=== PATIENT | female | born 1970 | race Caucasian/White ===

== ENCOUNTER 2017-08-15 15:50 | Outpatient (RCR) | payer OTHER, SELFPAY | END 2017-08-19 | LOC: INF 15:50 | PROVIDERS: PCP Family Medicine; Visit Provider Specialist | DX: C50.919 Malignant neoplasm of unspecified site of unspecified female breast (principal) | CPT/HCPCS: 99214 ==

== ENCOUNTER → 2018-01-26 13:32 | Outpatient (CLI) | payer OTHER, SELFPAY ==
[2018-01-26 14:31] LABS: Add Manual Diff / Slide Review NO; Basophils Percent Auto 1.1 % (0-2); Eosinophils Percent Auto 4.7 % (2-4); Hematocrit 38.8 % (36-46); Hemoglobin 13.2 g/dL (12.0-16.0); Lymphocytes Percent Auto 31.5 % (25-40); Mean Corpuscular HGB Conc 34.1 % (30-36); Mean Corpuscular Hemoglobin 32.9 PG (26-34); Mean Corpuscular Volume 96.4 fL (80-100); Monocytes Percent Auto 8.1 % (3-14); Neutrophils Absolute Auto 3100 /uL (3000-5900); Neutrophils Percent Auto 54.6 % (50-75); Platelet Count 413 X10^3/uL (150-400); Red Blood Cell Count 4.03 X10^6/uL (4.0-5.2); Red Cell Distribution Width 14.3 % (11.6-14.8); White Blood Cell Count 5.7 X10^3/uL (4.5-11.0)
[2018-01-26 15:11] LABS: Alanine Aminotransferase 58 IU/L (9-52); Albumin 4.4 g/dL (3.5-5.0); Albumin Globulin Ratio 1.5 (1.0-2.8); Alkaline Phosphatase 81 U/L (38-126); Aspartate Aminotransferase 32 IU/L (14-36); BUN Creatinine Ratio 22.5 (6-22); Bilirubin Total 0.5 mg/dL (0.2-1.3); Blood Urea Nitrogen 18 mg/dL (7-17); Calcium 9.3 mg/dL (8.4-10.2); Carbon Dioxide 28 mmol/L (22-32); Chloride 104 mmol/L (98-107); Estimated Glomerular Filt Rate > 60.0 mL/min (>60); Glucose 93 mg/dL (70-100); HEMOLYSIS 19 (0-50); Potassium 3.9 mmol/L (3.4-5.1); Sodium 143 mmol/L (137-145); Total Protein 7.4 g/dL (6.3-8.2)
== END ==
PROVIDERS: PCP Family Medicine; Visit Provider Nurse Practitioner Gerontology
DX: C50.919 Malignant neoplasm of unspecified site of unspecified female breast (principal)
CPT/HCPCS: 36415; 80053; 85025

== ENCOUNTER → 2018-02-02 11:32 | Outpatient (CLI) | payer OTHER, SELFPAY ==
--- NOTE | 2018-02-02 | DI.MG.S_ITS ---
BILATERAL DIGITAL SCREENING MAMMOGRAM 3D/2D WITH CAD POST LUMPECTOMY: 02/02/2018 CLINICAL: Routine screening. Personal history of breast cancer. Family history of breast cancer. Comparison is made to exams dated: 02/03/2017 mammogram, 01/28/2016 mammogram, and 08/25/2015 mammogram - [facility]. There are scattered fibroglandular elements in both breasts. Current study was also evaluated with a Computer Aided Detection (CAD) system. There are post operative findings in the right breast. No significant masses, calcifications, or other findings are seen in either breast. There has been no significant interval change. IMPRESSION: NEGATIVE There is no mammographic evidence of malignancy. A 1 year screening mammogram is recommended. This exam was interpreted at Station ID: [id number]. NOTE: For mammograms, a report in lay terms will be sent to the patient. Approximately 15% of breast malignancies will not be visualized mammographically. In the management of a palpable breast mass, a negative mammogram must not discourage biopsy of a clinically suspicious lesion. Electronically Signed By: Sonia dsouza/sahil:02/02/2018 12:17:24 copy to: Rosenda Wade letter sent: Normal Exam ACR BI-RADS Category 1: Negative 3341F
== END ==
PROVIDERS: PCP Family Medicine; Visit Provider Family Medicine
DX: Z12.31 Encounter for screening mammogram for malignant neoplasm of breast (principal); Z85.3 Personal history of malignant neoplasm of breast; Z80.3 Family history of malignant neoplasm of breast
CPT/HCPCS: 77063; 77067

== ENCOUNTER → 2018-02-07 07:13 | Outpatient (CLI) | payer OTHER, SELFPAY ==
--- NOTE | 2018-02-07 | DI.US.S_ITS ---
PROCEDURE: US PELVIC COMPLETE INDICATIONS: VAGINAL BLEEDING TECHNIQUE: Real-time scanning was performed of the pelvic organs, with image documentation. Additional endovaginal scanning was necessary due to incomplete visualization of the adnexal and endometrial structures by transabdominal scanning. COMPARISON: [facility], , PELVIC COMPLETE, 08/28/2015, 12:26. FINDINGS: Transabdominal scanning: Limited scanning through the kidneys shows no hydronephrosis. No pathologic free abdominal or pelvic fluid. Endovaginal scanning: Uterus: Uterus is normal in size at 11.0 x 6.9 8.0 cm. The endometrium measures 14.5 mm in combined thickness. Ovaries: Normal left ovary not visualized. Large cystic mass is seen within the left adnexa measuring 12.1 x 7.6 x 9.2 cm compared to 9.7 x 5.9 x 8.3 cm on prior exam Right ovary is normal size measuring 3.2 x 2.2 x 3.3 cm and a simple cyst is present measuring 2.2 cm. IMPRESSION: 1. Abnormal appearance of the endometrial complex which is again thickened to 14.5 mm. Endometrial biopsy is recommended as endometrial carcinoma cannot be excluded. 2. Increase in size of cystic left adnexal mass measuring up to 12.1 cm. Neoplasm such as cystadenoma/cystadenocarcinoma cannot be excluded. If indicated pre and post contrast gynecologic protocol MRI could be performed. Dictated by: Alex SIMENTAL Interpreted: Sam Woo MD on 02/07/2018 at 10:43 Approved by: Sam Woo M.D. on 02/07/2018 at 12:17
== END ==
PROVIDERS: PCP Family Medicine; Visit Provider Family Medicine
DX: N93.9 Abnormal uterine and vaginal bleeding, unspecified (principal); R93.8 Abnormal findings on diagnostic imaging of other specified body structures; N94.89 Other specified conditions associated with female genital organs and menstrual cycle
CPT/HCPCS: 76830; 76856

== ENCOUNTER → 2018-02-12 12:21 | Outpatient (CLI) | payer OTHER, SELFPAY ==
--- NOTE | 2018-02-12 | DI.MRI.S_ITS ---
PROCEDURE: MR PELVIS WO/W CON INDICATIONS: LEFT ADNEXAL MASS TECHNIQUE: Coronal HASTE, sagittal breath-hold T2 FSE; axial T1 FSE with and without fat saturation through the pelvis. Optional long- and short-axis uterine nonbreath-hold T2 FSE through the uterus. Sagittal or axial dynamic VIBE during administration of contrast. Post-contrast axial or coronal VIBE/2-D FLASH with fat saturation from the iliac crests to the symphysis. Optional diffusion weighted imaging and ADC may be performed. COMPARISON: [facility], , PELVIC COMPLETE, 08/28/2015, 12:26. [facility], , PELVIC COMPLETE, 02/07/2018, 7:24. FINDINGS: Image quality: Excellent. Uterus: Uterus is prominent in size with heterogeneity of the myometrial. Junctional zone is thickened, measuring greater than 12 mm, with indistinct margins. There is a section scar containing a small amount of fluid signal noted. Adnexa: There is a large thin-walled left adnexal cyst likely originating from the left ovary measuring approximately 9.7 x 7.5 x 10.2 cm. No definite solid internal enhancement component identified. The right ovary appears within normal size limits. Urinary system: Bladder wall is normal in thickness. Distal ureters are non distended. Urethra appears normal in morphology. Nodes and vessels: No pelvic or inguinal adenopathy by size criteria. Iliac vessels are normal in size. Bowel and peritoneum: No pathologic free pelvic fluid. Inferior colon and small bowel loops are normal in caliber. Soft tissues: No inguinal hernias. No findings of pelvic floor incompetence in the absence of provocation. Bones: Marrow demonstrates normal overall signal. IMPRESSION: 1. Heterogeneous uterus with thickened and ill-defined junctional zone suggestive of adenomyosis. 2. Large left ovarian cyst without internal solid enhancing component identified. The finding is nonspecific and a cystic ovarian neoplasm is not fully excluded although less likely given persistence of this finding over time. However, evaluation for change in size compared to prior ultrasound studies is limited due to differences in technique. Recommend continued followup to demonstrate stability. Dictated by: Montana Ingram M.D. on 02/13/2018 at 11:00 Approved by: Montana Ingram M.D. on 02/13/2018 at 11:25
[2018-02-12 14:22] LABS: Cancer Antigen 125 9 U/mL (0-35)
[2018-02-14 15:10] LABS: CA 15-3 18 U/mL (< 32)
[2018-02-14 15:12] LABS: Cancer Antigen 27.29 27 U/mL (< 38)
--- NOTE | 2018-03-13 11:26 | ONC.NAV ---
Description: Survivorship Summary Activity: Sent pt her survivorship summary. Sent pt's PCP letter and summary.
== END ==
PROVIDERS: Family Provider Surgery; PCP Family Medicine; Visit Provider Family Medicine
DX: C50.919 Malignant neoplasm of unspecified site of unspecified female breast (principal); N83.202 Unspecified ovarian cyst, left side; N83.9 Noninflammatory disorder of ovary, fallopian tube and broad ligament, unspecified
CPT/HCPCS: 36415; 72197; 86300; 86304; A9579

== ENCOUNTER 2018-04-19 08:58 | Day surgery (SDC) | payer OTHER, SELFPAY ==
[2018-04-17 16:46] VITALS: BMI 29.1
[2018-04-19] VITALS (9 sets, daily range): BP systolic 101–131; BP diastolic 46–70; PULSE 90–131; RESP 15–18; TEMP 36.3–37.2; O2SAT 94–97; BMI 30.2
--- NOTE | 2018-04-19 | PATH_ITS ---
[facility] Accession Number: [id number] . 01 Material submitted: . UTERUS AND BILATERAL FALLOPIAN TUBES . 02 Diagnosis: Morcellated Supracervical Hysterectomy Specimen With Bilateral Fallopian Tubes: Proliferative endometrium with disordered maturation and changes of glandular and stromal breakdown, negative for atypia. Fallopian tubes unremarkable. MRV/04/23/2018 . 02 Electronically signed: . Kris Catalan MD, Pathologist NPI- [id number] . 01 Gross description: . Received in formalin, labeled uterus, bilateral fallopian tubes, is a morcellated uterus (178 grams, 16.5 x 15.3 x 3.5 cm in aggregate) with attached nonfimbriated segments of fallopian tubes (tube #1: length-2.5 cm, diameter-0.3 cm, tube #2: length-1.3 cm, diameter-0.3 cm). The ovaries and cervix are absent. The specimen cannot be oriented and the endometrium and myometrium cannot be grossly measured. The parenchyma is clayton and unremarkable. The serosa is clayton, smooth and shiny. The fallopian tubes have palmer-clayton smooth shiny serosa and clayton unremarkable lumens. Section code: (A1-A3) parenchyma, cash application representative; (A4) fallopian tube #1, cash application representative serial sections; (A5) fallopian tube #2, cash application representative serial sections. ([id number]) /MRV . Pathologist provided ICD-10: N93.9 . 02 CPT . 690433 Performed at: 01 [facility] [address] [place] [address], [place], [place] [id number] MD Montana Malik MD Phone: [phone] Performed at: 02 [facility] [id number] [place] [id number] MD Louisa Reece MD Phone: [phone]
[2018-04-19] MEDS: LACTATED RINGERS 1,000 ML 42 ML IV (09:40)
--- NOTE | 2018-04-19 10:41 | PM.PREOP ---
Pre-operative Note Interval Note Pre-op Check: Yes History & Physical Reviewed by Physician Changes: No
[2018-04-19] MEDS: CEFAZOLIN 2 GM/100 ML FROZ.PIGGY IV (10:50)
--- NOTE | 2018-04-19 11:38 | SUR.OPER ---
Lithotomy on padded OR bed. [place] Pad Positioner under torso. Head on pillow, arms padded and tucked at sides. Legs secured in padded yellow fins stirrups.
[2018-04-19] MEDS: ROPIVACAINE 0.2% PF 2 MG/ML 10ML AMP 20 ML INJ (11:56)
[2018-04-19] MEDS: BUPIVACAINE 0.5% W/ EPI (PF) VIAL 30 ML INJ (11:57)
[2018-04-19] MEDS: OXYCODONE/ACETAMINOPHEN 5/325 TABLET 1 TAB PO (14:19)
--- NOTE | 2018-04-19 14:48 | PC.NURSE ---
Post-op: Recieved from PACU s/p hyst, TL, minimal pain at the moment. Took 1/2 of a percocet, doesn't like the way a whole percocet makes her feel. Reports it is effective. O2 sats 98% on ra. Cont pulse ox on per orders. Hungry and given some yogurt and tolerated same w/out problems. A general diet was ordered for dinner. VSS. Has been up in room/br to void. Scd's are on. Cont w/poc.
--- NOTE | 2018-04-19 18:10 | PC.NURSE ---
PATIENT HAS COMPLETED GENERAL DIET WITHOUT NAUSEA,HAS BEEN UP TO BATHROOM AND URINATED WITHOUT DIFFICULTY,AMBULATING INDEP.PAIN MANAGED WELL WITH JUST 1/2 TAB OF PERCOCET ABOUT 1400.WILL WAIT FOR TO COME BACK TO PICK HER UP AND D/C HOME.
--- NOTE | 2018-04-20 05:51 | P.OP_ITS ---
Operative Date/Time/Diagnoses Date of procedure: 04/19/18 Time of procedure: 12:30 Pre-op diagnosis: Menorrhagia Left ovarian mass Thickened endometrial lining Post-op diagnosis: same Procedure: Procedures Operation Date: 04/19/18 10:30 Actual Procedures Side Surgeon arnie CHAVEZ, bilateral Salpingectomy Flor Birch MD Indications: Menorrhagia Thickened endometrial lining Left ovarian mass Surgeon: Flor Birch Director Marketing: Angel Sapp Anesthesia Type: General Operative Notes Findings: 10 week size uterus Normal tubes and ovaries Normal gallbladder liver and appendix Probable adenomyosis Closure Type: primary Specimen(s): left tube, right tube and uterus Applied: catheter (Removed at the end of the case) Estimated blood loss (mL): 50 Blood products transfused: none Procedure in detail: The patient was taken to the operating room where she was placed in the dorsal supine position. After adequate general endotracheal anesthesia was achieved, she was placed in the dorsal lithotomy position, and prepped and draped in the usual sterile fashion. A timeout was performed. A bivalve speculum was placed into the vagina and the anterior lip of the cervix grasped with a single-tooth tenaculum. The cervical os was sequentially dilated until the ZUMI uterine manipulator could pass easily into the endometrial cavity. The single-tooth tenaculum was removed from the anterior lip of the cervix, and the bivalve speculum was removed from the vagina. Attention was then turned to the abdomen where 6 mL of half percent Marcaine with epinephrine were injected in the umbilical fold. A 5 mm incision was made. The Verhees needle was placed into the peritoneal cavity, and its placement confirmed by aspiration and drop test. The Verhees needle was removed. A 5 mm trocar was placed without difficulty. 2 other incisions were made midway between the pubic symphysis and umbilicus after 5 mL of half percent Marcaine with epinephrine were injected. These were 5 mm incisions. Two 5 mm trochars were placed under direct visualization. The right tube was grasped with an atraumatic grasper. Using the plasma kinetic with settings of 40 W the mesosalpinx was cauterized and cut all the way down to the cornua of the uterus. The cornua of the uterus was then grasped with an atraumatic grasper. The utero-ovarian ligaments were cauterized and cut. The round ligament and broad ligament was cauterized and cut with plasma kinetic. Hemostasis was achieved. The bladder flap was created using the plasma kinetic with cautery and cut half-way across. The uterine arteries on the right side were extensively cauterized with plasma kinetic. All of this was repeated on the left side. The remainder of the bladder flap was created using the plasma kinetic, and the bladder taken down off the lower uterine segment and cervix. Using the Endoloop, the cervix was amputated from the uterus 2 cm above the uterosacral ligaments, after the ZUMI uterine manipulator was removed from the uterus. There was a small amount of bleeding noted from the posterior edge of the cervix, and this was cauterized for hemostasis. A sponge stick was placed into the vagina. 6 mL of half percent Marcaine with epinephrine were injected above the pubic symphysis. A 12 mm trocar was placed and removed. An Endobag was placed through the suprapubic trocar and the uterus placed into the Endobag. The edges of the endobag were brought through the skin. The Shantanu placed into the endobag. The uterus was hand morcellated in approximately 20 pieces. The Endobag was removed from the peritoneal cavity. The Shantanu was removed. The pelvis was copiously irrigated with warm normal saline. No bleeding was noted. The instruments were removed from the abdomen. The CO2 was allowed to escape. The suprapubic incision was closed on the fascia with 0 Vicryl. The subcutaneous layer was closed with 2 simple interrupted sutures with 3 0 Vicryl. All of the incisions were closed with 4-0 undyed Vicryl in a subcuticular fashion. The moistened sponge stick was removed from the vagina. Sponge, lap, and instrument counts were correct x-2. The patient tolerated the procedure well, was taken to PACU in stable condition. Complications: none Post-operative Condition: stable Disposition: PACU Plan for aftercare: Home after recovery
== END 2018-04-19 18:47 | disposition home or self-care (01) ==
LOC: OR 08:59 → AC 09:00
PROVIDERS: Family Provider Surgery; PCP Family Medicine; Visit Provider Obstetrics & Gynecology
PROC: 0UT94ZL Resection of Uterus, Supracervical, Percutaneous Endoscopic Approach (ICD-10-PCS; CPT 58542; principal; 2018-04-19 10:30)
DX: N92.0 Excessive and frequent menstruation with regular cycle (principal); N85.00 Endometrial hyperplasia, unspecified; Z85.3 Personal history of malignant neoplasm of breast; F41.9 Anxiety disorder, unspecified; E03.9 Hypothyroidism, unspecified
CPT/HCPCS: 58542; J0330; J0690; J1100; J1170; J1885; J2405; J2704; J2795; J3010

== ENCOUNTER → 2018-08-06 15:24 | Outpatient (CLI) | payer OTHER, SELFPAY ==
[2018-04-19 13:22] VITALS: BMI 30.2
[2018-08-06 16:09] LABS: Add Manual Diff / Slide Review NO; Basophils Absolute Auto 100 /uL (0-100); Eosinophils Absolute Auto 200 /uL (0-450); Hematocrit 37.3 % (36-46); Lymphocytes Absolute Auto 1800 /uL (1100-4500); Lymphocytes Percent Auto 27.4 % (25-40); Mean Corpuscular HGB Conc 32.1 % (30-36); Mean Corpuscular Hemoglobin 28.1 PG (26-34); Mean Corpuscular Volume 87.6 fL (80-100); Monocytes Absolute Auto 600 /uL (0-900); Monocytes Percent Auto 9.4 % (3-14); Neutrophils Absolute Auto 3800 /uL (1500-7000); Neutrophils Percent Auto 59.2 % (50-75); Platelet Count 376 X10^3/uL (150-400); Red Blood Cell Count 4.26 X10^6/uL (4.0-5.2); Red Cell Distribution Width 17.6 % (11.6-14.8); White Blood Cell Count 6.4 X10^3/uL (4.5-11.0)
[2018-08-06 16:27] LABS: Alanine Aminotransferase 30 IU/L (9-52); Albumin 4.3 g/dL (3.5-5.0); Albumin Globulin Ratio 1.4 (1.0-2.8); Alkaline Phosphatase 84 U/L (38-126); Aspartate Aminotransferase 25 IU/L (14-36); BUN Creatinine Ratio 18.8 (6-22); Bilirubin Total 0.2 mg/dL (0.2-1.3); Blood Urea Nitrogen 15 mg/dL (7-17); Calcium 8.4 mg/dL (8.4-10.2); Carbon Dioxide 25 mmol/L (22-32); Chloride 102 mmol/L (98-107); Estimated Glomerular Filt Rate > 60.0 mL/min (>60); Globulin 3.1 g/dL (1.7-4.1); Glucose 115 mg/dL (70-100); HEMOLYSIS 22 (0-50); Potassium 3.5 mmol/L (3.4-5.1); Sodium 137 mmol/L (137-145); Total Protein 7.4 g/dL (6.3-8.2)
== END ==
PROVIDERS: Family Provider Surgery; PCP Family Medicine; Visit Provider Internal Medicine Hematology & Oncology
DX: Z08 Encounter for follow-up examination after completed treatment for malignant neoplasm (principal); Z85.3 Personal history of malignant neoplasm of breast; E03.9 Hypothyroidism, unspecified; F41.9 Anxiety disorder, unspecified; F32.9 Major depressive disorder, single episode, unspecified
CPT/HCPCS: 36415; 80053; 85025

== ENCOUNTER → 2019-02-08 13:41 | Outpatient (CLI) | payer OTHER, SELFPAY ==
[2018-04-19 13:22] VITALS: BMI 30.2
--- NOTE | 2019-02-08 13:42 | DI.MG.S_ITS ---
BILATERAL DIGITAL SCREENING MAMMOGRAM 3D/2D WITH CAD: 02/08/2019 CLINICAL: Routine screening. Personal history of right breast cancer. Family history of breast cancer. Comparison is made to exams dated: 02/02/2018 mammogram, 02/03/2017 mammogram, and 01/28/2016 mammogram - [facility]. There are scattered fibroglandular elements in both breasts. Current study was also evaluated with a Computer Aided Detection (CAD) system. There are benign post operative findings in the right breast. No significant masses, calcifications, or other findings are seen in either breast. There has been no significant interval change. IMPRESSION: There is no mammographic evidence of malignancy. A 1 year screening mammogram is recommended. This exam was interpreted at Station ID: [id number]. NOTE: For mammograms, a report in lay terms will be sent to the patient. Approximately 15% of breast malignancies will not be visualized mammographically. In the management of a palpable breast mass, a negative mammogram must not discourage biopsy of a clinically suspicious lesion. Electronically Signed By: Sonia dsouza/sahil:02/08/2019 15:20:34 copy to: Rosenda Wade letter sent: Normal Exam ACR BI-RADS Category 2: Benign Finding(s) 3342F
== END ==
PROVIDERS: PCP Family Medicine; Referring Provider Internal Medicine Hematology & Oncology; Visit Provider Family Medicine
DX: Z12.31 Encounter for screening mammogram for malignant neoplasm of breast (principal); Z85.3 Personal history of malignant neoplasm of breast; Z80.3 Family history of malignant neoplasm of breast
CPT/HCPCS: 77063; 77067

== ENCOUNTER → 2020-01-06 15:04 | Outpatient (CLI) | payer OTHER, SELFPAY ==
[2018-04-19 13:22] VITALS: BMI 30.2
== END ==
PROVIDERS: PCP Family Medicine; Referring Provider Family Medicine; Visit Provider Internal Medicine
DX: M85.852 Other specified disorders of bone density and structure, left thigh (principal); Z85.3 Personal history of malignant neoplasm of breast; Z82.62 Family history of osteoporosis; Z87.891 Personal history of nicotine dependence
CPT/HCPCS: 77080

== ENCOUNTER → 2021-04-29 13:51 | Outpatient (CLI) | payer OTHER, SELFPAY ==
[2018-04-19 13:22] VITALS: BMI 30.2
[2021-04-29 14:39] LABS: Hematocrit 44.8 % (36-46); Hemoglobin 15.1 g/dL (12.0-16.0); Mean Corpuscular HGB Conc 33.6 % (30-36); Mean Corpuscular Hemoglobin 32.2 PG (26-34); Mean Corpuscular Volume 95.7 fL (80-100); Platelet Count 320 X10^3/uL (150-400); Red Blood Cell Count 4.68 X10^6/uL (4.0-5.2); Red Cell Distribution Width 14.7 % (11.6-14.8); White Blood Cell Count 4.9 X10^3/uL (4.5-11.0)
[2021-04-29 14:46] LABS: Hemoglobin A1C% w Est Avg Glu 5.5 % (4.0-6.0)
[2021-04-29 14:51] LABS: Alanine Aminotransferase 58 IU/L (<35); Albumin 4.6 g/dL (3.5-5.0); Albumin Globulin Ratio 1.7 (1.0-2.8); Alkaline Phosphatase 87 U/L (38-126); Aspartate Aminotransferase 37 IU/L (14-36); Bilirubin Total 0.6 mg/dL (0.2-1.3); Blood Urea Nitrogen 12 mg/dL (7-17); Calcium 9.6 mg/dL (8.4-10.2); Carbon Dioxide 33 mmol/L (22-32); Chloride 100 mmol/L (98-107); Cholesterol 317 mg/dL (140-199); Estimated Glomerular Filt Rate > 60.0 mL/min (>60); Globulin 2.7 g/dL (1.7-4.1); Glucose 99 mg/dL (70-100); HDL Cholesterol 57 mg/dL (40-60); HEMOLYSIS < 15 (0-50); LDL Cholesterol Calculated 216 mg/dL (<100); Potassium 3.9 mmol/L (3.4-5.1); Sodium 139 mmol/L (137-145); Total Protein 7.3 g/dL (6.3-8.2); Triglycerides 219 mg/dL (35-150)
[2021-04-29 15:21] LABS: Free T4, Direct Thyroxine 1.47 ng/dL (0.78-2.19)
[2021-04-29 15:23] LABS: Ferritin 28 ng/mL (11-264)
[2021-04-29 15:35] LABS: Thyroid Stimulating Hormone 1.15 uIU/mL (0.47-4.68)
== END ==
PROVIDERS: PCP Family Medicine; Referring Provider Family Medicine; Visit Provider Family Medicine
DX: R94.5 Abnormal results of liver function studies (principal); E03.9 Hypothyroidism, unspecified; E78.2 Mixed hyperlipidemia; R73.01 Impaired fasting glucose; D64.9 Anemia, unspecified
CPT/HCPCS: 36415; 80053; 80061; 82728; 83036; 84439; 84443; 85025; 85027

== ENCOUNTER → 2021-05-12 12:15 | Outpatient (CLI) | payer OTHER, SELFPAY ==
[2018-04-19 13:22] VITALS: BMI 30.2
--- NOTE | 2021-05-12 | DI.US.S_ITS ---
PROCEDURE: US ABDOMEN LIMITED INDICATIONS: ABNORMAL LFTS TECHNIQUE: Real-time focused scanning was performed of the abdomen, with image documentation. COMPARISON: None. FINDINGS: Liver is diffusely increased in echogenicity. No focal hepatic abnormalities identified. Normal hepatic size. No gallstones identified. Normal gallbladder wall. No pericholecystic fluid. Negative sonographic North sign. No biliary dilatation. Normal appearance of pancreas. IMPRESSION: 1. Increased hepatic echogenicity likely representing steatosis. Dictated by: Alex Roque [facility] Interpreted: Montana Ingram MD on 05/12/2021 at 14:18 Transcribed by: PHILIPP on 05/12/2021 at 14:19 Approved by: Montana Ingram M.D. on 05/19/2021 at 12:55
== END ==
PROVIDERS: PCP Family Medicine; Referring Provider Family Medicine; Visit Provider Family Medicine
DX: R94.5 Abnormal results of liver function studies (principal)
CPT/HCPCS: 76705

== ENCOUNTER → 2022-05-03 13:41 | Outpatient (CLI) | payer OTHER, SELFPAY ==
[2018-04-19 13:22] VITALS: BMI 30.2
--- NOTE | 2022-05-03 | DI.MG.S_ITS ---
BILATERAL DIGITAL SCREENING MAMMOGRAM 3D/2D WITH CAD POST LUMPECTOMY: 05/03/2022 CLINICAL: Routine screening. Personal history of right breast cancer. Family history of breast cancer. Comparison is made to exams dated: 01/19/2021 mammogram, 12/23/2019 mammogram - [facility], and 02/08/2019 mammogram - [facility]. There are scattered areas of fibroglandular density in both breasts (category b / 25%-50% glandular tissue). Current study was also evaluated with a Computer Aided Detection (CAD) system. There are benign post operative findings in the right breast. No significant masses, calcifications, or other findings are seen in either breast. There has been no significant interval change. IMPRESSION: BENIGN There is no mammographic evidence of malignancy. A 1 year screening mammogram is recommended. This exam was interpreted at Station ID: [id number]. NOTE: For mammograms, a report in lay terms will be sent to the patient. Approximately 15% of breast malignancies will not be visualized mammographically. In the management of a palpable breast mass, a negative mammogram must not discourage biopsy of a clinically suspicious lesion. Electronically Signed By: Nixon jimenez/sahil:05/03/2022 14:43:09 copy to: Rosenda Wade letter sent: Normal Exam ACR BI-RADS Category 2: Benign Finding(s) 3342F
== END ==
PROVIDERS: PCP Family Medicine; Referring Provider Family Medicine; Visit Provider Family Medicine
DX: Z12.31 Encounter for screening mammogram for malignant neoplasm of breast (principal); Z85.3 Personal history of malignant neoplasm of breast; Z80.3 Family history of malignant neoplasm of breast
CPT/HCPCS: 77063; 77067

== ENCOUNTER → 2023-05-05 15:33 | Outpatient (CLI) | payer OTHER, SELFPAY ==
[2018-04-19 13:22] VITALS: BMI 30.2
--- NOTE | 2023-05-05 15:35 | DI.MG.S_ITS ---
BILATERAL DIGITAL SCREENING MAMMOGRAM 3D/2D WITH CAD: 05/05/2023 CLINICAL: Routine screening. Personal history of right breast cancer. Family history of breast cancer. Comparison is made to exams dated: 05/03/2022 mammogram - [facility], 01/19/2021 mammogram, and 12/23/2019 mammogram - [facility]. There are scattered areas of fibroglandular density in both breasts (category b / 25%-50% glandular tissue). Current study was also evaluated with a Computer Aided Detection (CAD) system. There are benign post operative findings in the right breast. No significant masses, calcifications, or other findings are seen in either breast. There has been no significant interval change. IMPRESSION: BENIGN There is no mammographic evidence of malignancy. A 1 year screening mammogram is recommended. This exam was interpreted at Station ID: [id number]. NOTE: For mammograms, a report in lay terms will be sent to the patient. Approximately 15% of breast malignancies will not be visualized mammographically. In the management of a palpable breast mass, a negative mammogram must not discourage biopsy of a clinically suspicious lesion. Electronically Signed By: Sonia dsouza/sahil:05/08/2023 13:43:34 copy to: Rosenda Wade letter sent: Normal Exam ACR BI-RADS Category 2: Benign Finding(s) 3342F
== END ==
PROVIDERS: PCP Family Medicine; Referring Provider Family Medicine; Visit Provider Family Medicine
DX: Z12.31 Encounter for screening mammogram for malignant neoplasm of breast (principal); Z85.3 Personal history of malignant neoplasm of breast; Z80.3 Family history of malignant neoplasm of breast
CPT/HCPCS: 77063; 77067

== ENCOUNTER → 2023-10-23 10:23 | Outpatient (CLI) | payer OTHER, SELFPAY ==
[2018-04-19 13:22] VITALS: BMI 30.2
[2023-10-23 11:23] LABS: Add Manual Diff / Slide Review NO; Basophils Absolute Auto 0 /uL (0-100); Basophils Percent Auto 0.7 % (0-2); Eosinophils Absolute Auto 100 /uL (0-450); Eosinophils Percent Auto 2.9 % (2-4); Hematocrit 42.4 % (36-46); Hemoglobin 14.5 g/dL (12.0-16.0); Lymphocytes Absolute Auto 1400 /uL (1100-4500); Lymphocytes Percent Auto 28.9 % (25-40); Mean Corpuscular HGB Conc 34.1 % (30-36); Mean Corpuscular Hemoglobin 33.7 PG (26-34); Mean Corpuscular Volume 98.8 fL (80-100); Monocytes Absolute Auto 400 /uL (0-900); Monocytes Percent Auto 8.4 % (3-14); Neutrophils Absolute Auto 2900 /uL (1500-7000); Neutrophils Percent Auto 59.1 % (50-75); Platelet Count 290 X10^3/uL (150-400); Red Blood Cell Count 4.29 X10^6/uL (4.0-5.2); Red Cell Distribution Width 14.2 % (11.6-14.8)
[2023-10-23 11:31] LABS: Hemoglobin A1C% w Est Avg Glu 5.5 % (4.0-6.0)
[2023-10-23 11:53] LABS: Alanine Aminotransferase 32 IU/L (<35); Albumin 4.1 g/dL (3.5-5.0); Albumin Globulin Ratio 1.7 (1.0-2.8); Alkaline Phosphatase 91 U/L (38-126); Aspartate Aminotransferase 32 IU/L (14-36); BUN Creatinine Ratio 21.1 (6-22); Bilirubin Total 0.6 mg/dL (0.2-1.3); Blood Urea Nitrogen 15 mg/dL (7-17); Calcium 8.6 mg/dL (8.4-10.2); Carbon Dioxide 30 mmol/L (22-32); Chloride 106 mmol/L (98-107); Cholesterol 211 mg/dL (140-199); Estimated Glomerular Filt Rate > 60 mL/min (>60); Globulin 2.4 g/dL (1.7-4.1); Glucose 107 mg/dL (70-100); HDL Cholesterol 64 mg/dL (40-60); HEMOLYSIS 18 (0-50); LDL Cholesterol Calculated 101 mg/dL (<100); Potassium 4.2 mmol/L (3.4-5.1); Sodium 139 mmol/L (137-145); Total Protein 6.5 g/dL (6.3-8.2); Triglycerides 228 mg/dL (35-150); VLDL Cholesterol Calculated 46 mg/dL (2-30)
[2023-10-23 12:06] LABS: Free T4, Direct Thyroxine 1.06 ng/dL (0.78-2.19)
[2023-10-23 12:20] LABS: Thyroid Stimulating Hormone 1.02 uIU/mL (0.47-4.68)
== END ==
PROVIDERS: PCP Family Medicine; Referring Provider Family Medicine; Visit Provider Family Medicine
DX: E03.9 Hypothyroidism, unspecified (principal); D64.9 Anemia, unspecified; F41.8 Other specified anxiety disorders; E78.2 Mixed hyperlipidemia; Z00.00 Encounter for general adult medical examination without abnormal findings; Z90.710 Acquired absence of both cervix and uterus; Z90.711 Acquired absence of uterus with remaining cervical stump; Z13.0 Encounter for screening for diseases of the blood and blood-forming organs and certain disorders involving the immune mechanism; Z13.29 Encounter for screening for other suspected endocrine disorder
CPT/HCPCS: 36415; 80053; 80061; 83036; 84439; 84443; 85025

== ENCOUNTER → 2023-10-25 12:15 | Outpatient (CLI) | payer OTHER, SELFPAY ==
[2018-04-19 13:22] VITALS: BMI 30.2
--- NOTE | 2023-10-25 12:17 | DI.RAD.S_ITS ---
PROCEDURE: XR CHEST 2V INDICATIONS: SOB TECHNIQUE: 2 views of the chest were acquired. COMPARISON: [facility], , CHEST 2 VIEW, 12/30/2014, 16:04. FINDINGS: Surgical changes and devices: Clips projecting over the right breast. Lungs and pleura: Lungs are clear. No pleural effusions or pneumothorax. Mediastinum: Mediastinal contours are normal. Heart size is normal. Bones and chest wall: No suspicious bony abnormalities. Soft tissues appear unremarkable. IMPRESSION: No acute cardiopulmonary abnormality is seen. Dictated by: Luis E Gupta M.D. on 10/25/2023 at 15:29 Approved by: Luis E Gupta M.D. on 10/25/2023 at 15:30
== END ==
PROVIDERS: PCP Family Medicine; Referring Provider Family Medicine; Visit Provider Family Medicine
DX: R06.02 Shortness of breath (principal); R06.09 Other forms of dyspnea
CPT/HCPCS: 71046

== ENCOUNTER → 2024-01-18 08:17 | Outpatient (CLI) | payer OTHER, SELFPAY ==
[2018-04-19 13:22] VITALS: BMI 30.2
== END ==
PROVIDERS: PCP Family Medicine; Referring Provider Internal Medicine Critical Care Medicine; Visit Provider Internal Medicine Critical Care Medicine
DX: R06.00 Dyspnea, unspecified (principal); Z87.891 Personal history of nicotine dependence
CPT/HCPCS: 94060; 94726; 94729

== ENCOUNTER → 2024-04-09 13:48 | Outpatient (CLI) | payer OTHER, SELFPAY ==
[2018-04-19 13:22] VITALS: BMI 30.2
--- NOTE | 2024-04-09 13:49 | DI.ECHO.S_ITS ---
[facility] : : [id number] : : [address] [place] : : [id number] : : Phone: [phone] Echocardiogram Report + + :Name: ZHEN LAGUNA Study Date: 04/09/2024 Height: 66 in : :[facility] ReadingLocation: Weight: 200 lb : : Gender: Female BSA: 2.0 m2 : :: 1970 Age: 54 yrs BP: 127/98 mmHg: :Reason For Study: DYSPNEA : :Ordering Physician: PEYTON, : :AMY Performed By: Bimal Ferraro : :Referring: AMY TODD : + + Interpretation Summary 1) Normal left ventricular thickness, size, wall motion, and systolic function (EF 60-65%). 2) Normal right ventricular size and function. 3) No significant valvular abnormalities. 4) The right ventricular systolic pressure is estimated to be at least 28 mmHg based on an estimated right atrial pressure of 3 mm Hg. 5) Comnpared to the Echo done 10/21/2015, no significant change when compared visually. Procedure: A two-dimensional transthoracic echocardiogram with color flow and Doppler was performed. The study quality was technically adequate. Comparison is made with the echocardiogram of 10/21/2015. The patient was in normal sinus rhythm during the exam. Left Ventricle: The left ventricle is normal in size. There is normal left ventricular wall thickness. There is no ventricular septal defect visualized. The ejection fraction is estimated to be 60-65%. There are no focal wall motion abnormalities. Diastolic parameters suggest a relaxation abnormality of the left ventricle, consistent with probable normal filling pressures. Right Ventricle: The right ventricle is normal in size and function. Atria: The left atrial size is normal. Right atrial size is normal. There is no Doppler evidence for an atrial septal defect. Mitral Valve: The mitral valve is normal in structure and function. There is no mitral regurgitation noted. Aortic Valve: The aortic valve is trileaflet. The aortic valve opens well. There is no aortic valve stenosis. No aortic regurgitation is present. Tricuspid Valve: The tricuspid valve is normal in structure and function. There is trace tricuspid regurgitation. The right ventricular systolic pressure is estimated to be at least 28 mmHg based on an estimated right atrial pressure of 3 mm Hg. Pulmonic Valve: The pulmonic valve is normal in structure and function. There is no pulmonic valvular regurgitation. Great Vessels: The aortic root is normal size. The dimensions of the ascending aorta are normal. The pulmonary artery is normal size. The IVC is of normal diameter and collapses greater than 50% with a sniff. This suggests a low right atrial pressure of 3 mm Hg. Pericardium/ Pleura There is no pericardial effusion. There is no pleural effusion. MMode/2D Measurements & Calculations LVIDd: 4.0 cm LVOT diam: 2.0 cm LVIDs: 2.6 cm Ao root diam: 3.0 cm FS: 35.5 % asc Aorta Diam: 3.2 cm EPSS: 0.34 cm Ao Arch Diam (Prox Trans): 2.7 cm IVSd: 1.0 cm LVPWd: 0.96 cm LV ness. diameter/BSA (cm/m^2): 2.0 LV sys. diameter/BSA (cm/m^2): 1.3 LA A2 area: 16.9 cm2 RA long axis: 3.8 cm LA A4 area: 15.9 cm2 RA area: 10.0 cm2 LA length (vol): 5.0 cm RA vol: 22.6 ml LA vol: 45.6 ml RA : 11.3 ml/m2 LA vol index: 22.8 ml/m2 IVC diam: 1.4 cm TAPSE: 2.2 cm Doppler Measurements & Calculations Ao V2 max: 118.4 cm/sec LVOT Max Justin: 84.5 cm/sec Ao V2 mean: 75.2 cm/sec LV V1 max P.9 mmHg Ao max P.6 mmHg LV V1 VTI: 20.4 cm Ao mean P.8 mmHg LUKE(I,D): 3.0 cm2 Ao V2 VTI: 21.8 cm LUKE(V,D): 2.3 cm2 sev ratio: 0.94 LUKE indexed to BSA (cm^2/m^2): 1.5 MV E max justin: 55.8 cm/sec TR max justin: 252.6 cm/sec MV A max justin: 71.7 cm/sec TR max P.5 mmHg MV E/A: 0.78 PA V2 max: 79.7 cm/sec Med Peak E' Justin: 5.3 cm/sec PA V2 mean: 47.7 cm/sec E/E' med: 10.5 PA mean P.1 mmHg Lat Peak E' Justin: 6.5 cm/sec PA pr(Accel): 19.1 mmHg E/E' lat: 8.6 E/e' average: 9.5 MV dec time: 0.17 sec SV(LVOT): 65.7 ml Reading Physician:05:27 PM
== END ==
PROVIDERS: PCP Family Medicine; Referring Provider Internal Medicine Critical Care Medicine; Visit Provider Internal Medicine Critical Care Medicine
DX: R06.00 Dyspnea, unspecified (principal)
CPT/HCPCS: 93306

== ENCOUNTER → 2024-10-05 11:11 | Outpatient (CLI) | payer OTHER, SELFPAY ==
[2018-04-19 13:22] VITALS: BMI 30.2
--- NOTE | 2024-10-05 11:13 | DI.MG.S_ITS ---
MM screening mammo BI: 10/05/2024. BI-RADS: 2 CLINICAL: 54-year old female for bilateral screening mammogram. No Tyrer-Cuzick risk score calculation due to the patient's personal history of breast cancer. Patient reports a history of right breast carcinoma diagnosed at age 44. Status-post right lumpectomy with radiation therapy and hormonal therapy. Current reported family history of breast cancer: mother. The patient had a prior right breast biopsy. PRIOR EXAMS 05/05/2023, 05/03/2022, 01/19/2021, 12/23/2019, 02/08/2019, 02/02/2018, 02/03/2017, 01/28/2016, 08/25/2015, 01/28/2015, 01/13/2015, 12/22/2014, 12/16/2014, 12/05/2014. MAMMOGRAPHY TECHNIQUE: 2D and 3D (tomosynthesis) digital mammographic views obtained, with additional images as needed for full coverage. Current study was also evaluated with a Computer Aided Detection (CAD) system. DENSITY B. There are scattered areas of fibroglandular density. MAMMOGRAPHY FINDINGS Right: Benign-appearing post-surgical changes noted on the right. There are no suspicious masses, calcifications, or other findings in the breast. Left: No suspicious mass, asymmetry, microcalcification, or other abnormality seen. IMPRESSION: Right * No evidence of malignancy with benign findings. Left * No evidence of malignancy. RECOMMENDATIONS Bilateral * Annual screening mammography. OVERALL ASSESSMENT CATEGORY BI-RADS-2: Benign. [employer] recommends annual screening mammography beginning at age 40 for women with average risk of breast cancer. ELECTRONICALLY SIGNED: Migel Cochran M.D. on 10/07/2024 at 08:45:31 AM PT Interpreting Station ID: [id number]
== END ==
PROVIDERS: PCP Family Medicine; Referring Provider Family Medicine; Visit Provider Family Medicine
DX: Z12.31 Encounter for screening mammogram for malignant neoplasm of breast (principal); Z85.3 Personal history of malignant neoplasm of breast; Z80.3 Family history of malignant neoplasm of breast
CPT/HCPCS: 77063; 77067

== ENCOUNTER → 2024-12-16 13:28 | Outpatient (CLI) | payer OTHER, SELFPAY ==
[2018-04-19 13:22] VITALS: BMI 30.2
[2024-12-16 14:16] LABS: HEMOLYSIS < 15 (0-50); Iron 132 ug/dL (37-170)
[2024-12-16 14:30] LABS: Percent Iron Saturation 37 % (15-50); Total Iron Binding Capacity 354 ug/dL (265-497); Transferrin 316 mg/dL (206-381)
[2024-12-16 14:54] LABS: Ferritin 21 ng/mL (11-264)
== END ==
PROVIDERS: PCP Family Medicine; Referring Provider Pediatrics; Visit Provider Pediatrics
DX: D50.9 Iron deficiency anemia, unspecified (principal); G25.81 Restless legs syndrome; G47.9 Sleep disorder, unspecified
CPT/HCPCS: 36415; 82728; 83540; 83550; 86140